=== PATIENT | male | born 1985 | race Caucasian/White ===

== ENCOUNTER 2025-02-22 07:15 | Emergency (ER) | payer OTHER ==
[~2025-02-22] VITALS: Ht 182.9 cm; Wt 84.8 kg
[2025-02-22 07:25] VITALS: BP 121/76; TEMP 98.3
[2025-02-22] MEDS ORDERED: AMOX-430 PO (07:56)
[2025-02-22] MEDS ORDERED: NAPR-1164 PO (07:56)
[2025-02-22] MEDS ORDERED: KETOROLAC TROMETHAMINE 15 MG/ML VIAL ONE (08:00)
[2025-02-22] MEDS ORDERED: AMOX/CLAVULANATE 875 MG TABLET ONE (08:00)
[2025-02-22] MEDS ORDERED: dexaMETHasone SOD PHOSPHATE 1 ML ONE (08:00)
[2025-02-22] MEDS: dexaMETHasone SOD PHOSPHATE 10 MG/ML VIAL IM ONE (08:20)
[2025-02-22] MEDS: AMOX/CLAVULANATE 875 MG TABLET PO ONE (08:22)
[2025-02-22] MEDS: KETOROLAC TROMETHAMINE 15 MG/ML VIAL IM ONE (08:23)
[2025-02-22 08:37] VITALS: O2SAT 98
== END 2025-02-22 08:38 | disposition home or self-care (01) ==
LOC: ER 07:24
DX: K04.7 Periapical abscess without sinus (principal); J44.89 Other specified chronic obstructive pulmonary disease; F17.200 Nicotine dependence, unspecified, uncomplicated
CPT/HCPCS: 99284; 96372; J1885; J1100